=== PATIENT | female | born 1945 | race Caucasian/White ===

== ENCOUNTER → 2017-06-24 14:17 | Outpatient (CLI) | payer MEDICARE ==
[2016-03-05 12:12] VITALS: BMI 17.0
[~2017-06-24 14:17] MED LIST: ALENDRONATE SOD70 MG PO; CRESTOR40 MG PO; NORCO 10/325 TA1 TA1 PO; PLAVIX75 MG PO; PROTONIX40 MG PO
== END | disposition home or self-care (01) ==
LOC: D.MAMMO 10:45
DX: Z12.31 Encounter for screening mammogram for malignant neoplasm of breast (principal)

== ENCOUNTER 2017-07-17 10:00 | Outpatient (CLI) | payer MEDICARE ==
[2016-03-05 12:12] VITALS: BMI 17.0
== END 2017-07-17 23:59 | disposition home or self-care (01) ==
LOC: D.MAMMO 10:00
DX: R92.8 Other abnormal and inconclusive findings on diagnostic imaging of breast (principal)

== ENCOUNTER → 2018-07-20 20:01 | Outpatient (CLI) | payer MEDICARE ==
[2016-03-05 12:12] VITALS: BMI 17.0
== END | disposition home or self-care (01) ==
LOC: D.MAMMO 10:30
DX: Z12.31 Encounter for screening mammogram for malignant neoplasm of breast (principal)

== ENCOUNTER 2019-07-18 08:00 | Outpatient (CLI) | payer MEDICARE ==
[2016-03-05 12:12] VITALS: BMI 17.0
== END 2019-07-18 23:59 | disposition home or self-care (01) ==
LOC: D.MAMMO 08:00
PROVIDERS: ATTEND Family Medicine
DX: Z12.31 Encounter for screening mammogram for malignant neoplasm of breast (principal)

== ENCOUNTER → 2020-05-01 10:15 | Outpatient (CLI) | payer OTHER ==
[2016-03-05 12:12] VITALS: BMI 17.0
== END | disposition home or self-care (01) ==
LOC: D.CT 10:15
PROVIDERS: ATTEND Family Medicine
DX: R10.9 Unspecified abdominal pain (principal)

== ENCOUNTER → 2020-05-09 09:46 | Outpatient (CLI) | payer OTHER ==
[2016-03-05 12:12] VITALS: BMI 17.0
== END | disposition home or self-care (01) ==
LOC: D.US 09:46
PROVIDERS: ATTEND Family Medicine
DX: R10.9 Unspecified abdominal pain (principal)

== ENCOUNTER → 2020-06-04 08:43 | Outpatient (CLI) | payer OTHER ==
[2016-03-05 12:12] VITALS: BMI 17.0
== END | disposition home or self-care (01) ==
LOC: D.NM 08:43
PROVIDERS: ATTEND Family Medicine
DX: R10.11 Right upper quadrant pain (principal)

== ENCOUNTER → 2020-06-18 11:57 | Outpatient (CLI) | payer OTHER ==
[2016-03-05 12:12] VITALS: BMI 17.0
[2020-06-18 13:35] LABS: T4 THYROXINE 8.4 ug/dL (4.7-13.3); THYROID STIMULATING HORMONE 1.13 uIU/mL (0.36-3.74)
== END | disposition home or self-care (01) ==
LOC: D.LAB 11:57
PROVIDERS: ATTEND Surgery
DX: E04.1 Nontoxic single thyroid nodule (principal)

== ENCOUNTER 2020-11-27 10:15 | Outpatient (CLI) | payer OTHER ==
[2020-08-14 09:15] VITALS: BMI 17.9
[~2020-11-27 10:15] MED LIST changes: +ELAVIL25 MG PO; +MOBIC7.5 MG PO
== END 2020-11-27 23:59 | disposition home or self-care (01) ==
LOC: D.MAMMO 10:15
PROVIDERS: ATTEND Family Medicine
DX: Z12.31 Encounter for screening mammogram for malignant neoplasm of breast (principal)

== ENCOUNTER → 2021-02-20 13:03 | Outpatient (CLI) | payer OTHER ==
[2020-08-14 09:15] VITALS: BMI 17.9
== END | disposition home or self-care (01) ==
LOC: D.US 13:03
PROVIDERS: ATTEND Family Medicine
DX: Z98.890 Other specified postprocedural states (principal)

== ENCOUNTER → 2021-02-28 10:58 | Outpatient (CLI) | payer OTHER ==
[2020-08-14 09:15] VITALS: BMI 17.9
== END | disposition home or self-care (01) ==
LOC: D.CT 10:58
PROVIDERS: ATTEND Family Medicine
DX: I65.21 Occlusion and stenosis of right carotid artery (principal)